=== PATIENT | female | born 1960 | race Caucasian/White ===

== ENCOUNTER 2018-01-26 06:59 | Day surgery (SDC) | payer BC ==
[~2018-01-26] VITALS: Ht 165.1 cm; Wt 101.6 kg
[~2018-01-26 06:59] MED LIST: DULO60CA41 PO; GLIM4TAB2 PO; INSU10VI4 SUBCUT; LIP10 PO; LISI-219 PO
[2018-01-26] MEDS ORDERED: LABETALOL 100 MG/ 20ML VIAL IVP ONE (07:00)
[2018-01-26] MEDS ORDERED: ONDANSETRON HCL 4 MG/2 ML VIAL IVP ONE (07:00)
[2018-01-26] MEDS ORDERED: ROCURONIUM BROMIDE 10 MG/ML (ZEMURON) IV ONE (07:00)
[2018-01-26] MEDS ORDERED: MIDAZOLAM HCL 5 MG/5 ML VIAL IVP ONE (07:00)
[2018-01-26] MEDS ORDERED: PROPOFOL 200MG/ 20ML VIAL (DIPRIVAN) IV ONE (07:00)
[2018-01-26] MEDS ORDERED: SEVOFLURANE 15 MIN GAS INH ONE (07:00)
[2018-01-26] MEDS ORDERED: MEPERIDINE HCL/PF 100 MG/ML AMP IM ONE (07:00)
[2018-01-26] MEDS ORDERED: GLYCOPYRROLATE 0.2 MG/ML VIAL IJ ONE (07:00)
[2018-01-26] MEDS ORDERED: CEFAZOLIN SOD 1 GM in D5W 50 ML IV ONE (07:15)
[2018-01-26] MEDS ORDERED: INSU3INS10 SQ (07:45)
[2018-01-26] MEDS ORDERED: IOHEXOL 50 ML IV ONE (09:33)
[2018-01-26] MEDS ORDERED: ONDANSETRON HCL 4 MG/2 ML VIAL IVP PRN (09:45)
[2018-01-26] MEDS ORDERED: fentaNYL CITRATE/PF 100 MCG/2 ML AMP IVP PRN ×2 (09:45)
[2018-01-26] MEDS ORDERED: D5/0.45 NS 1,000 ML IV SCH (10:36)
[2018-01-26] MEDS ORDERED: HYDROcodone/ACETAMIN 5-325 MG TAB (NORCO/ VICODIN) PO PRN ×2 (10:45)
[2018-01-26] MEDS ORDERED: HYDROmorphone 1 MG INJ. 1 MG/ML AMPUL IVP PRN (10:45)
[2018-01-26] MEDS ORDERED: HYDROcodone/ACETAMIN 5-325 MG TAB (NORCO/ VICODIN) ONE (11:47)
[2018-01-26 15:05] VITALS: BP_SYST 170
== END 2018-01-26 13:35 | disposition home or self-care (01) ==
LOC: SMU 06:59 → SDS 06:59
PROVIDERS: ATTEND Colon & Rectal Surgery
DX: K80.12 Calculus of gallbladder with acute and chronic cholecystitis without obstruction (principal); D64.9 Anemia, unspecified; H52.209 Unspecified astigmatism, unspecified eye; H81.10 Benign paroxysmal vertigo, unspecified ear; E11.39 Type 2 diabetes mellitus with other diabetic ophthalmic complication; E11.22 Type 2 diabetes mellitus with diabetic chronic kidney disease; N18.3 Chronic kidney disease, stage 3 (moderate); E11.3299 Type 2 diabetes mellitus with mild nonproliferative diabetic retinopathy without macular edema, unspecified eye; E78.5 Hyperlipidemia, unspecified; E04.0 Nontoxic diffuse goiter; Z68.37 Body mass index [BMI] 37.0-37.9, adult; F34.1 Dysthymic disorder; I12.9 Hypertensive chronic kidney disease with stage 1 through stage 4 chronic kidney disease, or unspecified chronic kidney disease; Z98.890 Other specified postprocedural states; Z80.3 Family history of malignant neoplasm of breast; E55.9 Vitamin D deficiency, unspecified; Z79.899 Other long term (current) drug therapy; E66.9 Obesity, unspecified; J40 Bronchitis, not specified as acute or chronic
CPT/HCPCS: 47563; 76000; 82962; 88304; C1727; C1758; J0690; J2175; J2250; J2405; J2704; J3490 ×2; J7060; J7120; Q9967